=== PATIENT | male | born 1955 | race Caucasian/White ===

== ENCOUNTER → 2020-06-23 09:44 | Outpatient (BNVA) | payer OTHER, SELFPAY | PROVIDERS: PCP Internal Medicine; Visit Provider Urology | DX: N40.1 Benign prostatic hyperplasia with lower urinary tract symptoms (principal); R39.12 Poor urinary stream; R35.1 Nocturia; N52.01 Erectile dysfunction due to arterial insufficiency | CPT/HCPCS: 51798; 99212 ==

== ENCOUNTER → 2021-06-24 10:07 | Outpatient (BNVA) | payer OTHER, SELFPAY | PROVIDERS: PCP Internal Medicine; Visit Provider Urology | DX: N52.01 Erectile dysfunction due to arterial insufficiency (principal); R39.12 Poor urinary stream; R35.1 Nocturia | CPT/HCPCS: 51798; 99212 ==

== ENCOUNTER → 2022-07-01 10:22 | Outpatient (BNVA) | payer OTHER, MEDICARE, SELFPAY | PROVIDERS: PCP Internal Medicine; Visit Provider Urology | DX: N40.1 Benign prostatic hyperplasia with lower urinary tract symptoms (principal); R39.12 Poor urinary stream; R97.20 Elevated prostate specific antigen [PSA] | CPT/HCPCS: 51798; 99212 ==

== ENCOUNTER 2023-01-03 11:02 | Outpatient (AMB) | payer OTHER, MEDICARE, SELFPAY ==
--- NOTE | 2023-01-03 11:03 | A.OFFVIS_ITS ---
Intake Intake Visit Reasons: 6m/PSA(set) Intake Note: Patient is Present for Telephone Follow Up Urology Med: Finasteride, Sildenafil, Tamsulosin Antibiotic Allergy: None Blood Thinner: None Allergies naproxen [Naprosyn] Allergy (Unknown, Verified 01/03/23 11:03) swelling Medication List - Last Reconciled 01/03/23 by Alex Ga MD finasteride 5 mg PO DAILY 90 days sildenafil 100 mg PO ONCE PRN 30 days tamsulosin 0.4 mg PO BEDTIME 90 days HPI HPI Comments History of Present Illness Details Narciso PRO is a very pleasant male. He is a patient of Dr Fry. He is seen for the following urologic conditions. - lower urinary tract symptoms - erectile dysfunction Telemedicine Evaluation 15 min Consultation Doximity Sp Video attempted Repeat PSA normalized Prior ALYSON 2+ normal Continue with tamsulosin, finasteride and sildenafil as needed Lower Urinary Tract Symptoms: Recently - finasteride and tamsulosin Current visit is for further evaluation of, lower urinary tract symptoms, predominate obstructive symptoms. Current treatment includes medication, finasteride. Prostate Symptom Score 12/30 Mild (0-8), Bother 3. Symptoms include 12/30 , incomplete emptying, urgency, nocturia (>2), and are progressing 06/30 , incomplete emptying, and are improving. Prior Prostate Score mild. PSA 10/30 4.7 F 20%, 05/31 2.3, 05/01 PSA 1.3, 01/01 PSA 1.8, 04/05 1.7, 05/05 5.4, 01/05 1.8 Prostate volume 30-50gm. Testing at next visit will include Improved urination. Continuing current medications Erectile dysfunction Good response to high-dose sildenafil Prescription provided May take up to 200 mg as needed REPLACED BY [facility] Medical History Costochondritis Erectile dysfunction due to arterial insufficiency Elevated PSA Weak urinary stream Nocturia Hesitancy of micturition Benign prostatic hyperplasia with lower urinary tract symptoms Surgical History History of surgery Assessment & Plan Assessment & Plan (1) Elevated PSA: Code(s): R97.20 - Elevated prostate specific antigen [PSA] (2) Nocturia: Code(s): R35.1 - Nocturia (3) Erectile dysfunction due to arterial insufficiency: Code(s): N52.01 - Erectile dysfunction due to arterial insufficiency Plan Six month follow-up PSA Orders: Orders Prostate Specific Antigen 6 Months R97.20 - Elevated prostate specific antigen [PSA] Medications: Refilled tamsulosin 0.4 mg PO BEDTIME 90 days 90 caps 1RF R35.1 - Nocturia finasteride 5 mg PO DAILY 90 days 90 tabs 2RF Patient Instructions: Imaging studies, laboratory and physical exam results were discussed and re viewed in detail. No major barriers to patient understanding were identified. An opportunity to ask questions regarding the treatment plan was provided. All questions were answered. The patient expressed understanding and agreement with the above treatment plan. The patient is aware they should contact our office by phone for worsening of their current condition or the appearance of new urologic symptoms. Compliance is encouraged with any medications and followup testing that is ordered. It is a privilege to participate in the urologic care of your patient. If you have any questions or concerns regarding treatment for the above conditions, or other urologic issues, please do not hesitate to contact me. The office telephone contact is [phone]. This note is constructed using voice recognition software. While every effort has been made to ensure accuracy consumer insights specialist errors may have been included. Yours sincerely, Dr Alex Ga MD, [facility] - Urology Providers of Expert, Compassionate Care for the Genitourinary System Telehealth Telehealth Location of provider rendering services: practice address Location of patient: address on file Patient Identification confirmed using: Name, : Yes Telehealth method: video Patient verbally consented to treatment: Yes Patient verbally consented to billing insurance company: Yes Patient informed of any privacy concerns related to visit: Yes Coding Level of Care Code Tele Est Pt Level 3 (25146) Diagnoses Elevated PSA R97.20 Nocturia R35.1 Erectile dysfunction due to arterial insufficiency N52.01
== END 2023-01-03 12:04 | disposition home or self-care (01) ==
LOC: HO.HUSH 11:02
PROVIDERS: PCP Internal Medicine; Visit Provider Urology
DX: R97.20 Elevated prostate specific antigen [PSA] (principal); R35.1 Nocturia; N52.01 Erectile dysfunction due to arterial insufficiency
CPT/HCPCS: 99213

== ENCOUNTER → 2023-01-03 11:02 | Outpatient (BNVA) | payer OTHER, MEDICARE, SELFPAY | PROVIDERS: PCP Internal Medicine; Visit Provider Urology ==

== ENCOUNTER 2023-07-05 10:26 | Outpatient (AMB) | payer OTHER, MEDICARE, SELFPAY ==
--- NOTE | 2023-07-05 10:30 | A.OFFVIS_ITS ---
Intake Visit Reasons: 6m/PSA(SET) Intake Note: Patient is Present for PSA Follow Up Urology Med: Finasteride, Sildenafil, Tamsulosin Antibiotic Allergy: None Blood Thinner: None Developing Machine Tender Required: No Accompanied by: Self / Same As Patient Allergies naproxen [Naprosyn] Allergy (Unknown, Verified 07/05/23 10:37) swelling Medication List - Last Reconciled 07/05/23 by Alex Ga MD finasteride 5 mg PO DAILY 90 days sildenafil 100 mg PO ONCE PRN 30 days tamsulosin 0.4 mg PO BEDTIME 90 days HPI Comments Details: Narciso PRO is a very pleasant male. He is a patient of Dr Fry. He is seen for the following urologic conditions. - lower urinary tract symptoms - erectile dysfunction PSA remains low Prior ALYSON 2+ normal Continue with tamsulosin, finasteride and sildenafil as needed Cut finasteride back to Monday, Monday, Monday Lower Urinary Tract Symptoms: Recently - finasteride and tamsulosin Current visit is for further evaluation of, lower urinary tract symptoms, predominate obstructive symptoms. Current treatment includes medication, finasteride. Prostate Symptom Score 12/30 Mild (0-8), Bother 3. Symptoms include 12/30 , incomplete emptying, urgency, nocturia (>2), and are progressing 06/30 , incomplete emptying, and are improving. Prior Prostate Score mild. PSA 10/30 4.7 F 20%, 05/31 2.3, 05/01 PSA 1.3, 01/01 PSA 1.8, 04/05 1.7, 05/05 5.4, 01/05 1.8, 07/06 1.8 Prostate volume 30-50gm. Testing at next visit will include Improved urination. Continuing current medications Erectile dysfunction Good response to high-dose sildenafil Prescription provided May take up to 200 mg as needed PFSH Medical History Costochondritis Erectile dysfunction due to arterial insufficiency Elevated PSA Weak urinary stream Nocturia Hesitancy of micturition Benign prostatic hyperplasia with lower urinary tract symptoms Surgical History History of surgery Review of Systems Const Denies chills and Denies fever(s) Card Reports no additional complaints and Denies syncope Resp Denies cough GI Denies abdominal pain and Denies heartburn Reports as per HPI and Denies change in libido Neuro Denies syncope Psych Denies change in libido Endo Denies change in libido Physical Exam Const General: cooperative, healthy appearing, comfortable and no acute distress Orientation/consciousness: patient oriented x3 HEENT Face and sinus: Yes normal facial exam Mouth: moist mucous membranes Neck Neck: Yes normal visual inspection, Yes full ROM and Yes trachea midline Chest Chest palpation & inspection: normal inspection of the chest Resp Effort & Inspection: normal respiratory effort, able to speak in complete sentences and no respiratory distress GI Inspection: Yes normal to inspection Back/Spine/Pelvis Cervical Spine: normal cervical lordosis Thoracic/Lumbar Spine: thoracic and lumbar spine normal to inspection Skin General skin exam: no rashes or lesions noted Neuro General: patient oriented x3, gait normal, tone normal and moves all extremities Extrem General: Yes normal to inspection and Yes capillary refill normal Assessment & Plan Assessment & Plan (1) Elevated PSA: Code(s): R97.20 - Elevated prostate specific antigen [PSA] Category: Medical (2) Erectile dysfunction due to arterial insufficiency: Code(s): N52.01 - Erectile dysfunction due to arterial insufficiency Category: Medical (3) Benign prostatic hyperplasia with lower urinary tract symptoms: Code(s): N40.1 - Benign prostatic hyperplasia with lower urinary tract symptoms Category: Medical Plan Six-month follow-up PSA Orders: Orders Prostate Specific Antigen 6 Months R97.20 - Elevated prostate specific antigen [PSA] Patient Instructions: Imaging studies, laboratory and physical exam results were discussed and reviewed in detail. No major barriers to patient understanding were identified. An opportunity to ask questions regarding the treatment plan was provided. All questions were answered. The patient expressed understanding and agreement with the above treatment plan. The patient is aware they should contact our office by phone for worsening of their current condition or the appearance of new urologic symptoms. Compliance is encouraged with any medications and followup testing that is ordered. It is a privilege to participate in the urologic care of your patient. If you have any questions or concerns regarding treatment for the above conditions, or other urologic issues, please do not hesitate to contact me. The office telephone contact is [phone]. This note is constructed using voice recognition software. While every effort has been made to ensure accuracy compress trucker errors may have been included. Yours sincerely, Dr Alex Ga MD, [facility] - Urology Providers of Expert, Compassionate Care for the Genitourinary System Coding Level of Care Code Est Pt Level 3 (27495) Diagnoses Elevated PSA R97.20 Erectile dysfunction due to arterial insufficiency N52.01 Benign prostatic hyperplasia with lower urinary tract symptoms N40.1
== END 2023-07-05 11:24 | disposition home or self-care (01) ==
PROVIDERS: PCP Internal Medicine; Visit Provider Urology
DX: R97.20 Elevated prostate specific antigen [PSA] (principal); N52.01 Erectile dysfunction due to arterial insufficiency; N40.1 Benign prostatic hyperplasia with lower urinary tract symptoms
CPT/HCPCS: 99213

== ENCOUNTER → 2023-07-05 10:26 | Outpatient (BNVA) | payer OTHER, MEDICARE, SELFPAY | PROVIDERS: PCP Internal Medicine; Visit Provider Urology | DX: N40.1 Benign prostatic hyperplasia with lower urinary tract symptoms (principal); N13.8 Other obstructive and reflux uropathy; N52.01 Erectile dysfunction due to arterial insufficiency; R97.20 Elevated prostate specific antigen [PSA] | CPT/HCPCS: 99212 ==

== ENCOUNTER 2024-01-05 08:34 | Outpatient (AMB) | payer OTHER, MEDICARE, SELFPAY ==
--- NOTE | 2024-01-05 08:35 | A.OFFVIS_ITS ---
Intake Visit Reasons: 6M PSA(Set) Intake Note: Patient is present for PSA Follow Up Urology Med: Tamsulosin, Sildenafil, Finasteride Antibiotic Allergy: None Blood Thinner: None LAB: 12/22/2023 - PSA: 1.69 Last PVR: 0ml Licensed Staff Mft Required: No Accompanied by: Self / Same As Patient Allergies naproxen [Naprosyn] Allergy (Unknown, Verified 01/05/24 08:35) swelling Medication List - Last Reconciled 01/05/24 by Alex Ga MD finasteride 5 mg PO DAILY 90 days sildenafil 100 mg PO ONCE PRN 30 days tamsulosin 0.4 mg PO BEDTIME 90 days HPI Comments Details: Narciso PRO is a very pleasant male. He is a patient of Dr Fry. He is seen for the following urologic conditions. - lower urinary tract symptoms - erectile dysfunction Telemedicine Evaluation 15 min Consultation Cognitive Security Sp Video PSA remains low Follow in 6m Add on daily tadalafil Prior ALYSON 2+ normal Continue with tamsulosin, finasteride and sildenafil as needed Finasteride back to Monday, Monday, Monday Lower Urinary Tract Symptoms: Recently - finasteride and tamsulosin Current visit is for further evaluation of, lower urinary tract symptoms, predominate obstructive symptoms. Current treatment includes medication, finasteride. Prostate Symptom Score 12/30 Mild (0-8), Bother 3. Symptoms include 12/30 , incomplete emptying, urgency, nocturia (>2), and are progressing 06/30 , incomplete emptying, and are improving. Prior Prostate Score mild. PSA 10/30 4.7 F 20%, 05/31 2.3, 05/01 PSA 1.3, 01/01 PSA 1.8, 04/05 1.7, 05/05 5.4, 01/05 1.8, 07/06 1.8, 01/06 1.7 Prostate volume 30-50gm. Testing at next visit will include Improved urination. Continuing current medications Erectile dysfunction Good response to high-dose sildenafil Prescription provided May take up to 200 mg as needed PFSH Medical History Costochondritis Erectile dysfunction due to arterial insufficiency Elevated PSA Weak urinary stream Nocturia Hesitancy of micturition Benign prostatic hyperplasia with lower urinary tract symptoms Surgical History History of surgery Review of Systems Const All systems reviewed & are unremarkable except as noted in HPI and below Reports no additional complaints Resp Reports no additional complaints GI Reports no additional complaints Reports as per HPI Musc Reports no additional complaints Physical Exam Telemedicine evaluation Appropriate responses Regular breathing rate and rhythm HEENT Head: Yes normal to inspection Ears: hearing grossly normal bilaterally Eyes General: appearance normal, both eyes and all related structures Neck Neck: Yes normal visual inspection Chest Chest palpation & inspection: normal inspection of the chest Resp Effort & Inspection: normal respiratory effort and able to speak in complete sentences Telehealth Telehealth Telehealth Platform: Cognitive Security Location of provider rendering services: practice address Location of patient: address on file Patient Identification confirmed using: Name, : Yes Telehealth method: video Patient verbally consented to treatment: Yes Patient verbally consented to billing insurance company: Yes Patient informed of any privacy concerns related to visit: Yes Minutes spent on Phone/Video with Pt.: 15 Assessment & Plan Assessment & Plan (1) Benign prostatic hyperplasia with lower urinary tract symptoms: Code(s): N40.1 - Benign prostatic hyperplasia with lower urinary tract symptoms Category: Medical (2) Erectile dysfunction due to arterial insufficiency: Code(s): N52.01 - Erectile dysfunction due to arterial insufficiency Category: Medical Plan Refill meds Add daily tadalafil Six-month follow-up Orders: Orders Prostate Specific Antigen 364 Days N40.1 - Benign prostatic hyperplasia with lower urinary tract symptoms Medications: New tadalafil 5 mg PO DAILY 90 days 90 tabs 0RF BPH N40.1 - Benign prostatic hyperplasia with lower urinary tract symptoms Refilled tamsulosin 0.4 mg PO BEDTIME 90 days 90 caps 3RF R35.1 - Nocturia finasteride 5 mg PO DAILY 90 days 90 tabs 2RF sildenafil administer 60 minutes before intended activity 100 mg PO ONCE 30 days PRN 30 tabs 1RF sexual activity N52.01 - Erectile dysfunction due to arterial insufficiency Patient Instructions: Imaging studies, laboratory and physical exam results were discussed and reviewed in detail. No major barriers to patient understanding were identified. An opportunity to ask questions regarding the treatment plan was provided. All questions were answered. The patient expressed understanding and agreement with the above treatment plan. The patient is aware they should contact our office by phone for worsening of their current condition or the appearance of new urologic symptoms. Compliance is encouraged with any medications and followup testing that is ordered. It is a privilege to participate in the urologic care of your patient. If you have any questions or concerns regarding treatment for the above conditions, or other urologic issues, please do not hesitate to contact me. The office telephone contact is [phone]. This note is constructed using voice recognition software. While every effort has been made to ensure accuracy language pathologist errors may have been included. Yours sincerely, Dr Alex Ga MD, [facility] - Urology Providers of Expert, Compassionate Care for the Genitourinary System Coding Level of Care Code Tele Est Pt Level 4 (00071) Diagnoses Benign prostatic hyperplasia with lower urinary tract symptoms N40.1 Erectile dysfunction due to arterial insufficiency N52.01
== END 2024-01-05 10:47 | disposition home or self-care (01) ==
PROVIDERS: PCP Internal Medicine; Visit Provider Urology
DX: N40.1 Benign prostatic hyperplasia with lower urinary tract symptoms (principal); N52.01 Erectile dysfunction due to arterial insufficiency
CPT/HCPCS: 99214

== ENCOUNTER 2024-08-02 13:43 | Outpatient (AMB) | payer OTHER, MEDICARE, SELFPAY ==
--- NOTE | 2024-08-02 13:45 | A.OFFVIS_ITS ---
Intake Visit Reasons: follow up/PSA Intake Note: Patient is present for PSA F/U Urology Medication:TADALAFIL,TAMSULOSIN,FINASTERIDE Antibiotic Allergy:NONE Blood Thinner:NONE TODAY'S PVR:0ML'S Radio Producer Required: No Allergies naproxen (Naprosyn) Allergy (Unknown, Verified 08/02/24 13:46) swelling HPI Comments Details: Narciso PRO is a very pleasant male. He is a patient of Dr Fry. He is seen for the following urologic conditions. - lower urinary tract symptoms - erectile dysfunction Six-month follow-up Has been on daily tadalafil to help with bladder stability Prior ALYSON 2+ normal Continue with tamsulosin, finasteride and sildenafil as needed Finasteride back to Monday, Monday, Monday Lower Urinary Tract Symptoms: Recently - finasteride and tamsulosin Current visit is for further evaluation of, lower urinary tract symptoms, predominate obstructive symptoms. Current treatment includes medication, finasteride. Prostate Symptom Score 12/30 Mild (0-8), Bother 3. Symptoms include 12/30 , incomplete emptying, urgency, nocturia (>2), and are progressing 06/30 , incomplete emptying, and are improving. Prior Prostate Score mild. PSA 10/30 4.7 F 20%, 05/31 2.3, 05/01 PSA 1.3, 01/01 PSA 1.8, 04/05 1.7, 05/05 5.4, 01/05 1.8, 07/06 1.8, 01/06 1.7, 08/07 2.3 Prostate volume 30-50gm. Testing at next visit will include Improved urination. Continuing current medications Erectile dysfunction Good response to high-dose sildenafil Prescription provided May take up to 200 mg as needed [facility] Medical History Costochondritis Erectile dysfunction due to arterial insufficiency Elevated PSA Weak urinary stream Nocturia Hesitancy of micturition Benign prostatic hyperplasia with lower urinary tract symptoms Surgical History History of surgery Review of Systems Const Denies chills and Denies fever(s) Card Reports no additional complaints and Denies syncope Resp Denies cough GI Denies abdominal pain and Denies heartburn Reports as per HPI and Denies change in libido Neuro Denies syncope Psych Denies change in libido Endo Denies change in libido Physical Exam Const General: cooperative, healthy appearing, comfortable and no acute distress Orientation/consciousness: patient oriented x3 HEENT Face and sinus: Yes normal facial exam Mouth: moist mucous membranes Neck Neck: Yes normal visual inspection, Yes full ROM and Yes trachea midline Chest Chest palpation & inspection: normal inspection of the chest Resp Effort & Inspection: normal respiratory effort, able to speak in complete sentences and no respiratory distress GI Inspection: Yes normal to inspection Back/Spine/Pelvis Cervical Spine: normal cervical lordosis Thoracic/Lumbar Spine: thoracic and lumbar spine normal to inspection Skin General skin exam: no rashes or lesions noted Neuro General: patient oriented x3, gait normal, tone normal and moves all extremities Extrem General: Yes normal to inspection and Yes capillary refill normal Office Procedures Post Void Residual Post Residual Void Post Void Residual (PVR): 0 [id number]-[id number] Void Residual by ultrasound Assessment & Plan Assessment & Plan (1) Weak urinary stream: Code(s): R39.12 - Poor urinary stream Category: Medical (2) Benign prostatic hyperplasia with lower urinary tract symptoms: Code(s): N40.1 - Benign prostatic hyperplasia with lower urinary tract symptoms Category: Medical Plan Six-month follow-up Orders: Orders AMB Urinalysis Automated Today Z13.9 - Encounter for screening, unspecified Medications: Refilled finasteride 5 mg PO DAILY 90 tabs 3RF 90 days Patient Instructions: This note is constructed using voice recognition software. While every effort has been made to ensure accuracy accounts receivable associate errors may have been included. Imaging studies, laboratory and physical exam results were discussed and reviewed in detail. No major barriers to patient understanding were identified. An opportunity to ask questions regarding the treatment plan was provided. All questions were answered. The patient expressed understanding and agreement with the above treatment plan. The patient is aware they should contact our office by phone for worsening of their current condition or the appearance of new urologic symptoms. Compliance is encouraged with any medications and followup testing that is ordered. It is a privilege to participate in the urologic care of your patient. If you have any questions or concerns regarding treatment for the above conditions, or other urologic issues, please do not hesitate to contact me. The office telephone contact is [phone]. Sincerely, Dr Alex Ga MD, [facility] - Urology Compassionate Specialist Care for the Genitourinary System Coding Level of Care Code Est Pt Level 3 (96311) Complex EM visit Add On G2211 Diagnoses Weak urinary stream R39.12 Benign prostatic hyperplasia with lower urinary tract symptoms N40.1 CPT Codes Post Residual Void - PVR CPT Code: 47363-Ikxh Void Residual by ultrasound ([id number])
--- OUTSIDE RECORDS SUMMARY | 2024-08-02 13:46 | XMS_ITS | Clinical Summary ---
Author Organization [facility] Address [address] [place] [address] Phone Care Team Providers Care Mud Analysis Well Logging Captain Name Role Phone Darryl Fry MD Primary Care Provider Allergies Active Allergy Reactions Criticality Noted Date Comments Naproxen 12/27/2004 Other Reaction(s): Numbness, tingling or swelling of the lips, tongue or mouth Medications finasteride (PROSCAR) 5 mg tablet 3 Active sildenafiL (VIAGRA) 100 mg tablet 1 tablet as needed 60 minutes before intercourse. Max is 100mg in 24 hours. 6 Active tamsulosin (FLOMAX) 0.4 mg 24 hr capsule Take 0.4 mg by mouth daily. Take 30 mins after same meal every day. Active acetaminophen (TYLENOL) 500 mg tablet prn Active ascorbic acid (VITAMIN C) 1,000 mg tablet 1 TABLET DAILY AT DINNER Active diclofenac (VOLTAREN) 1 % topical gel Apply 2 gram four times daily to affected joint 100 g 3 5 Active fluticasone propionate (FLONASE) 50 mcg/actuation nasal spray Administer 2 sprays into each nostril 2 (two) times a day. Shake gently. Before first use, prime pump. After use, clean tip and replace cap. 16 g 3 5 Active mupirocin (BACTROBAN) 2 % ointment Apply topically 2 (two) times a day. 22 g 5 Active ergocalciferol (VITAMIN D-2) 1,250 mcg (50,000 unit) capsule Take 1 capsule (50,000 Units total) by mouth 1 (one) time per week. 12 capsule 5 Active Active Problems Problem Noted Date Diagnosed Date Nasal inflammation 04/18/2024 Erectile dysfunction 04/18/2024 Benign prostatic hyperplasia with lower urinary tract symptoms 03/28/2022 Elevated LDL cholesterol level 03/28/2022 Other emphysema (CMS/HCC V24, CMS/HCC V28) 03/28 Underweight 03/28/2022 Direct inguinal hernia 01/09/2019 Elevated PSA 05/02/2016 Impaired fasting blood sugar 11/02/2015 Periapical abscess without sinus 04/21/2005 Mitral valve disorder 04/21/2005 Overview (02/05/2024): ECHO in 2008 and 2013 Resolved Problems Problem Noted Date Diagnosed Date Resolved Date Chest pain 04/21/2005 04/18/2024 Encounters Date Type Department Care Team Description 07/10/2024 Telephone Adult Medicine [address] [phone] Lisandra Pickard PA 07/04/2024 2:30 PM EDT Office Visit Adult Medicine [address] [phone] Lisandra Pickard PA Routine general medical examination at a health care facility (Primary Dx); Hypercholesterolemia; Vitamin D deficiency; IFG (impaired fasting glucose); Elevated PSA; Screening for deficiency anemia from Last 3 Months Immunizations Name Administration Dates Next Due Influenza Quadravalent, MDCK , 0.5ml, preservative free (Flucelvax) 6mo and older 03/28/2022,01/09/2019,12/14/2017 Influenza Quadravalent, MDCK , 0.5ml, with preservative (Flucelvax) 6mo and older 11/02/2016 Influenza trivalent, 0.5mL ( Fluad) 65yo and older 04/05/2024 Influenza trivalent, 0.5mL ( Fluzone High-dose) 65yo and older 01/20/2021,01/14/2020,11/03/2014 Influenza trivalent, with pr eservative (Fluzone; Afluria) 6mo and older 11/02/2015 [facility] [employer] SARS-CoV-2 COVID -19, vector-nr, rS-Ad26, preservative free 05/27/2020 Pneumococcal conjugate 20 va lent (Prevnar 20, PCV 20) 2mo and older 03/28/2022 Pneumococcal polysaccharide 23 valent (Pneumovax 23) 2yo and older 03/16/2020 Td Tetanus diptheria (Tdvax) 7yo and older 03/16,06/19/2003 Tdap Tetanus diptheria acell ular pertussis (Boostrix; Adacel) 7yo and older 12/21/2009 Zoster Live 11/03/2014 Surgical History Surgery Date Site/Laterality Comments OTHER SURGICAL HISTORY PROCEDURE: HISTORY OTHER; COMMENT: septo[plasty[ OTHER SURGICAL HISTORY PROCEDURE: HISTORY OTHER; COMMENT: partial rt middle finger traumatic amputation COLONOSCOPY 06/14/10 PROCEDURE: HISTORICAL COLONOSCOPY; COMMENT: adenomas and tics; repeat in 5 yrs COLONOSCOPY 06/19/15 PROCEDURE: MS COLONOSCOPY STOMA W/RMVL DALILA POLYP/OTH LES SNARE; COMMENT: adenomas and tics; repeat in 3 yrs COLONOSCOPY 07/24/2018 PROCEDURE: HISTORICAL COLONOSCOPY; COMMENT: two tiny polyps Medical History Medical History Date Comments Chest pain, unspecified 04/21/2005 DX:Chest pain, unspecified Mitral valve disorders(424.0) 04/21/2005 DX :Mitral valve disorders(424.0) Periapical abscess without sinus 04/21/2005 DX:Periapical abscess without sinus Personal history of colonic polyps 08/21/2005 DX:Personal history of colonic polyps Tobacco use disorder 08/22/2005 DX:Tobacco use disorder Mitral valve disorders(424.0) 04/21/2005 DX :Mitral valve disorders(424.0) Chest pain 04/21/2005 Family History Medical History Relation Name Comments Other: myasthenia gravis Brother 1 hyp ercholesterolemia Stroke Brother 2 Cataracts Father heart murmur, a sbestosis, [place] Heart attack Mother No Known Problems Sister Relation Name Status Comments Brother 1 Brother 2 Alive Father (Age 89) Mother (Age 77) Sister Alive Social History Tobacco Use Types Packs/Day Years Used Date Smoking Tobacco: Former Cigarettes Q uit: 08/14/2019 Smokeless Tobacco: Never Tobacco Cessation:Counseling Given: Not Answered Alcohol Use Standard Drinks/Week Comments Yes 0 (1 standard drink = 0.6 oz pur e alcohol) 2 beers daily Housing Instability Answer Date Recorde d Are you worried that in the next 2 months you may not have stable housing? No 04/05/2024 Food Access & Nutrition Answer Date Rec orded Do you have access to a vari ety of food including fruits and vegetables? Yes 04/05/2024 Health Literacy Answer Date Recorded How often do you need to hav e someone help you when you read instructions, pamphlets, or other written material from your doctor or pharmacy? Never 04/05/2024 Caregiver: How often do you need to have someone help you when you read instructions, pamphlets, or other written material from your doctor or pharmacy? Not on file 04/05/2024 Financial Risk Answer Date Recorded How hard is it for you to pa y for the very basics like food, housing, medical care, and air conditioning / heating? Not very hard 04/05/2024 Transportation Answer Date Recorded Has the lack of transportati on kept you from meetings, work, or from getting things needed for daily living? No Has the lack of transportati on kept you from medical appointments or from getting medications? No 04/05/2024 Social Isolation Answer Date Recorded How often do you feel lonely or isolated from th ose around you? Never 04/05/2024 Food Risk Answer Date Recorded Within the past 12 months we worried whether our food would run out before we got money to buy more. Never true 04/05/2024 Within the past 12 months th e food we bought just didn't last and we didn't have money to get more. Never true 04/05/2024 Dependent Care Answer Date Recorded Do you need help finding or paying for care for your loved ones. For example, professor of early childhood education or elderly care for an older adult? No 04/05/2024 Education Answer Date Recorded Do you think completing more education or training, like finishing a GED, going to college, or learning a trade, would be helpful for you? No 04/05/2024 Employment and Income Answer Date Recor ded During the last four weeks, have you been actively looking for work? No 04/05/2024 Living Situation Answer Date Recorded What is your living situation? 0 04/05/2024 Sex and Gender Information Value Date Recorded Sex Assigned at Not on file Legal Sex Male 7:16 AM EST Gender Identity Not on file Sexual Orientation Not on file Occupation Industry Job Start Date Job End Date retired Not on file Not on file Not on file Obstetrics History Last Filed Vital Signs Vital Sign Reading Time Taken Comments Blood Pressure 115/60 07/04/2024 2:23 PM EDT Pulse 86 07/04/2024 2:23 PM EDT Temperature 36.2 C (97.1 F) 07/04/2024 2:23 PM EDT Respiratory Rate 15 07/04/2024 2:23 PM EDT Oxygen Saturation - - Inhaled Oxygen Concentration - - Weight 62 kg (136 lb 9.6 oz) 07/04/2024 2:23 PM EDT Height 182.9 cm (6') 07/04/2024 2:23 PM EDT Body Mass Index 18.53 07/04/2024 2:23 PM EDT Plan of Treatment Upcoming Encounters Date Type Department Care Team (Late st Contact Info) Description 07/08/2025 11:30 AM EDT Office Visit Adult Medicine [facility] [address] [place] [address] Darryl Fry MD [address] [place] [address] Health Maintenance Due Date Last Done Comments RSV Immunization Adult Patients (1 - Risk 60-74 years 1-dose series) 2014 Zoster Vaccines (2 of 3) 12/29/2014 11/03/2014 COVID-19 Vaccine (3 - season) 2023 05/27/2020, 04/28/2020 Lung Cancer Screening (Low Dose CT) 12/10/2024 12/11/2023, 12/12/2022, 12/06/2021, Additional history exists Depression Screening 04/05/2025 04/05/2024 Falls Risk Assessment 04/05/2025 04/05/2024 Social Influencers of Health Screening 04/05/2025 04/05/2024 Cholesterol Screening (Lipid Panel) 07/05/2029 07/05/2024, 06/29/2023, 06/29/2023 DTaP,Tdap,and Td Vaccines (5 - Td or Tdap) 03/16/2030 03/16/2020, 12/21/2009, 02/01/2008, Additional history exists Colorectal Cancer Screening: Colonoscopy 10/22/2033 10/23/2023 Hepatitis C Screening Completed 01/26/2006 Abdominal Aortic Aneurysm (AAA) Screen Completed 04/09/2020 Pneumococcal Vaccine: 50+ Years Completed 03/28/2022, 03/16/2020 Influenza Vaccine Completed 04/05/2024, , 01/20/2021, Additional history exists HIB Vaccines Aged Out No longer eligi ble based on patient's age to complete this topic HPV Vaccines Aged Out No longer eligi ble based on patient's age to complete this topic Hepatitis A Vaccines Aged Out No long er eligible based on patient's age to complete this topic Hepatitis B Vaccines Aged Out No long er eligible based on patient's age to complete this topic IPV Vaccines Aged Out No longer eligi ble based on patient's age to complete this topic MMR Vaccines Aged Out No longer eligi ble based on patient's age to complete this topic Meningococcal ACWY Vaccine Aged Out N o longer eligible based on patient's age to complete this topic Meningococcal B Vaccine Aged Out No l onger eligible based on patient's age to complete this topic RSV Immunization Patients Under 20 months Aged Out No longer eligible based on patient's age to complete this topic Varicella Vaccines Aged Out No longer eligible based on patient's age to complete this topic Procedures Procedure Name Priority Date/Time Associated Diagnosis Comments PROSTATE SPECIFIC ANTIGEN DIAGNOSTIC Routine 07/19/2024 10:59 AM EDT Benign localized prostatic hyperplasia with lower urinary tract symptoms (LUTS) COMPREHENSIVE METABOLIC PANEL Routine 07/05/2024 9:47 AM EDT Routine general medical examination at a health care facility COMPLETE BLOOD COUNT Routine 07/05/2024 9:47 AM EDT Screening for deficiency anemia LIPID PANEL WITH REFLEX TO DIRECT LDL Routine 07/05/2024 9:47 AM EDT Hypercholesterolemia VITAMIN D 25 HYDROXY Routine 07/05/2024 9:47 AM EDT Vitamin D deficiency HEMOGLOBIN A1C Routine 07/05/2024 9:47 AM EDT IFG (impaired fasting glucose) PROSTATE SPECIFIC ANTIGEN SCREEN Routine 07/05/2024 9:47 AM EDT Elevated PSA CT LUNG SCREENING LOW DOSE Routine 12/11/2023 11:24 AM EDT Nicotine dependence, cigarettes, uncomplicated HM COLONOSCOPY Routine 10/23/2023 ABDOMINAL AORTIC ANEURYSM SCRREN Routine 04/09/2020 HEPATITIS C SCREENING Routine 01/26/2006 from Last 3 Months or Most Recently Relevant to Health Maintenance Results * Prostate specific antigen diagnostic (07/19/2024 10:59 AM EDT) PSA 2.33 0.00 - 4.00 ng/mL LAB CHEMISTRY METHOD 07/19/2024 2:43 PM EDT [facility] Blood Venous blood specimen / Unknown Venipuncture / Unknown 07/19/2024 10:59 AM EDT 07/19/2024 10:59 AM EDT Narrative [facility] - 07/19/2024 2:43 PM EDT The Siemens Advia Centaur Chemiluminescent Immunoassay is used. Results obtained with different assay methods or kits cannot be used interchangeably. Results cannot be interpreted as absolute evidence of the presence or absence of malignant disease. us Alex Ga MD LAB BLOOD ORDERABLES Final Re sult [facility] [address] [place] [address], [place] [phone] * Prostate specific antigen screen (07/05/2024 9:47 AM EDT) [facility] PSA 2.30 0.00 - 4.00 ng/mL LAB CHEMISTRY METHOD 07/05/2024 5:21 PM EDT [facility] Blood Venous blood specimen / Unknown Venipuncture / Unknown 07/05/2024 9:47 AM EDT 07/05/2024 9:47 AM EDT Narrative [facility] - 07/05/2024 5:21 PM EDT The Siemens Advia Accuvantaur Chemiluminescent Immunoassay is used. Results obtained with different assay methods or kits cannot be used interchangeably. Results cannot be interpreted as absolute evidence of the presence or absence of malignant disease. us Lisandra STARKEY LAB BLOOD ORDERABLES Final Resul t [facility] [address] [place] [address], [place] [phone] * Lipid panel with reflex to direct LDL (07/05/2024 9:47 AM EDT) [facility] Cholesterol 176 0 - 200 mg/dL LAB CHEMISTRY METHOD 07/05/2024 3:31 PM EDT [facility] Triglycerides 105 0 - 150 mg/dL LAB CHEMISTRY METHOD 07/05/2024 3:31 PM EDT [facility] HDL 61 >=40 mg/dL LAB CHEMISTRY METHOD 07/05/2024 3:31 PM EDT [facility] LDL Calculated 94 0 - 100 mg/dL LAB CHEMISTRY METHOD 07/05/2024 3:31 PM EDT [facility] VLDL Cholesterol Javier 21 mg/dL LAB CHEMISTRY METHOD 07/05/2024 3:31 PM EDT [facility] Non HDL Chol. (LDL+VLDL) 115 <145 mg/dL LAB CHEMISTRY METHOD 07/05/2024 3:31 PM EDT [facility] Chol/HDL Ratio 2.9 0.0 - 4.4 LAB CHEMISTRY METHOD 07/05/2024 3:31 PM EDT [facility] Blood Venous blood specimen / Unknown Venipuncture / Unknown 07/05/2024 9:47 AM EDT 07/05/2024 9:47 AM EDT us Lisandra Pickard PA LAB BLOOD ORDERABLES Final Resul t Performing Organization Address [facility]/ZIP Co de Phone Number [facility] [address] [place] [address], [place] [phone] * (ABNORMAL) Vitamin D 25 hydroxy (07/05/2024 9:47 AM EDT) Vit D, 25-Hydroxy 12.6(L) 30.0 - 80.0 ng/mL LAB CHEMISTRY METHOD 07/05/2024 5:21 PM EDT [facility] Blood Venous blood specimen / Unknown Venipuncture / Unknown 07/05/2024 9:47 AM EDT 07/05/2024 9:47 AM EDT us Lisandra STARKEY LAB BLOOD ORDERABLES Final Resul t Performing Organization Address [facility]/ZIP Va de Phone Number [facility] [address] [place] [address], [place] [phone] * (ABNORMAL) Complete blood count (07/05/2024 9:47 AM EDT) WBC 8.6 4.8 - 10.8 K/mcL LAB HEMETOLOGY METHOD 07/05/2024 12:12 PM EDT [facility] RBC 4.40(L) 4.50 - 5.50 M/mcL LAB HEMETOLOGY METHOD 07/05/2024 12:12 PM EDT [facility] Hemoglobin 13.5 13.5 - 17.5 g/dL LAB HEMETOLOGY METHOD 07/05/2024 12:12 PM EDT [facility] Hematocrit 41.1(L) 42.0 - 54.0 % LAB HEMETOLOGY METHOD 07/05/2024 12:12 PM EDT [facility] MCV 93.4 79.0 - 98.0 FL LAB HEMETOLOGY METHOD 07/05/2024 12:12 PM EDT [facility] MCH 30.7 27.0 - 32.0 pcg LAB HEMETOLOGY METHOD 07/05/2024 12:12 PM EDT [facility] MCHC 32.8 32.0 - 37.0 g/dL LAB HEMETOLOGY METHOD 07/05/2024 12:12 PM EDT [facility] RDW 14.4 11.0 - 15.0 % LAB HEMETOLOGY METHOD 07/05/2024 12:12 PM EDT [facility] Platelets 250 130 - 400 K/mcL LAB HEMETOLOGY METHOD 07/05/2024 12:12 PM EDT [facility] MPV 10.4 7.0 - 11.0 FL LAB HEMETOLOGY METHOD 07/05/2024 12:12 PM EDT [facility] NRBC 0.0 <1.0 % LAB HEMETOLOGY METHOD 07/05/2024 12:12 PM EDT [facility] NRBC Absolute 0.00 <0.10 K/mcL LAB HEMETOLOGY METHOD 07/05/2024 12:12 PM EDT [facility] Blood Venous blood specimen / Unknown Venipuncture / Unknown 07/05/2024 9:47 AM EDT 07/05/2024 9:47 AM EDT us Lisandra Neeraj STARKEY LAB BLOOD ORDERABLES Final Resul t [facility] [address] [place] [address], [place] [phone] * Hemoglobin A1c (07/05/2024 9:47 AM EDT) [facility] Hemoglobin A1C 5.3 <6.5 % LAB CHEMISTRY METHOD 07/08/2024 12:47 PM EDT [facility] Mean Bld Glu Estim. 105 mg/dL LAB CHEMISTRY METHOD 07/08/2024 12:47 PM EDT [facility] Blood Venous blood specimen / Unknown Venipuncture / Unknown 07/05/2024 9:47 AM EDT 07/05/2024 9:47 AM EDT us Lisandra STARKEY LAB BLOOD ORDERABLES Final Resul t [facility] [address] [place] [address], * (ABNORMAL) Comprehensive metabolic panel (07/05/2024 9:47 AM EDT) [facility] Sodium 135 133 - 145 mmol/L LAB CHEMISTRY METHOD 07/05/2024 3:31 PM [facility] Potassium 4.4 3.5 - 5.5 mmol/L LAB CHEMISTRY METHOD 07/05/2024 3:31 PM [facility] Chloride 101 96 - 110 mmol/L LAB CHEMISTRY METHOD 07/05/2024 3:31 PM [facility] CO2 22 21 - 32 mmol/L LAB CHEMISTRY METHOD 07/05/2024 3:31 PM [facility] Anion Gap 12(H) 3 - 11 LAB CHEMISTRY METHOD 07/05/2024 3:31 PM [facility] Glucose 123(H) 70 - 100 mg/dL LAB CHEMISTRY METHOD 07/05/2024 3:31 PM [facility] BUN 12 5 - 25 mg/dL LAB CHEMISTRY METHOD 07/05/2024 3:31 PM [facility] Creatinine 0.87 0.70 - 1.30 mg/dL LAB CHEMISTRY METHOD 07/05/2024 3:31 PM [facility] eGFR 93 >=60 mL/min/1. 73m2 LAB CHEMISTRY METHOD 07/05/2024 3:31 PM [facility] Comment:Calculation based on the Chronic Kidney Disease Epidemiology Collaboration (CKD-EPI) equation refit without adjustment for race. BUN/Creatinine Ratio 13.8 LAB CHEMISTRY METHOD 07/05/2024 3:31 PM [facility] Calcium 9.5 8.5 - 10.5 mg/dL LAB CHEMISTRY METHOD 07/05/2024 3:31 PM [facility] AST (SGOT) 16 10 - 42 unit/L LAB CHEMISTRY METHOD 07/05/2024 3:31 PM [facility] ALT (SGPT) 19 10 - 60 unit/L LAB CHEMISTRY METHOD 07/05/2024 3:31 PM [facility] Alkaline Phosphatase 68 42 - 121 unit/L LAB CHEMISTRY METHOD 07/05/2024 3:31 PM [facility] Total Protein 7.5 6.0 - 8.0 g/dL LAB CHEMISTRY METHOD 07/05/2024 3:31 PM [facility] Albumin 3.8 3.2 - 5.0 g/dL LAB CHEMISTRY METHOD 07/05/2024 3:31 PM [facility] Total Bilirubin 0.7 0.0 - 1.4 mg/dL LAB CHEMISTRY METHOD 07/05/2024 3:31 PM [facility] Blood Venous blood specimen / Unknown Venipuncture / Unknown 07/05/2024 9:47 AM EDT 07/05/2024 9:47 AM EDT us Lisandra Neeraj STARKEY LAB BLOOD ORDERABLES Final Resul t [facility] [address] [place] [address], [place] [phone] * CT LUNG SCREENING LOW DOSE (12/11/2023 11:24 AM EDT) Anatomical Region Laterality Modality Computed Tomogra phy 12/10/2023 7:56 AM EDT Narrative 12/11/2023 11:24 AM EDT [facility] Diagnostic Imaging Department [address] [place] [address] Patient: NARCISO PRO./Age/Sex: 1955 - 68 - M Unit#: [id number] [facility] Mnemonic/Ordering Site: [facility] Ordering Physician: OSIRIS LIRIANO MD CT Lung Screening Low Dose - 12/10/23803 Report Status:Signed PROCEDURE: Chest CT INDICATION: Lung cancer screening, current smoker, 50 pack year smoking history TECHNIQUE: Chest CT without contrast. Multi planar reformats were created and interpreted. The examination was performed utilizing dose reduction techniques. Total DLP 202 COMPARISON: 12/07/2022 FINDINGS: LUNGS/PLEURA: Central airways are patent. Emphysema with chronic bronchitis. Biapical pleural-parenchymal scarring. Stable 5 mm fissural nodule in the right upper lobe along the minor fissure. Linear scarring in the right middle lobe and in the lower lobes at the lung bases bilaterally, stable compared to prior. No new or suspicious pulmonary nodules. No pleural effusion or pneumothorax. MEDIASTINUM: Thyroid gland is unremarkable. No mediastinal or hilar lymphadenopathy. Cardiac chambers are normal in size. No pericardial effusion. Mild coronary artery calcifications. Esophagus is normal. CHEST WALL: No axillary lymphadenopathy or superficial hematoma. UPPER ABDOMEN:The visualized portions of the upper abdomen are unremarkable. BONES: No acute fracture. Scattered degenerative changes seen throughout the bones. IMPRESSION: No new or suspicious pulmonary nodules. Lung RADS 2-benign. Recommend continued screening with low-dose chest CT in 12 months. Dictating Physician: SHANTEL ANTOINE MD Electronically Signed by: SHANTEL ANTOINE MD Dic Date/Time: 12/11/23 1047 Sign date/Time: 12/11/23 1124 Procedure Note Shantel Antoine MD - 12/16/2023 [facility] Diagnostic Imaging Department [address] [place], [place] [id number] Patient: NARCISO PRO /Age/Sex: 1955 - 68 - M Unit#: [id number] Location/Status: [facility] CLI Mnemonic/Ordering Site: [facility] Ordering Physician: OSIRIS LIRIANO MD CT Lung Screening Low Dose - 12/10/23 - 04 Report Status:Signed PROCEDURE: Chest CT INDICATION: Lung cancer screening, current smoker, 50 pack year smokinghistory TECHNIQUE: Chest CT without contrast. Multi planar reformats were createdand interpreted. The examination was performed utilizing dose reductiontechniques. Total DLP 202 COMPARISON: 12/07/2022 FINDINGS: LUNGS/PLEURA: Central airways are patent. Emphysema with chronicbronchitis. Biapical pleural-parenchymal scarring. Stable 5 mm fissural nodule in theright upper lobe along the minor fissure. Linear scarring in the right middlelobe and in the lower lobes at the lung bases bilaterally, stable compared toprior. No new or suspicious pulmonary nodules. No pleural effusion orpneumothorax. MEDIASTINUM: Thyroid gland is unremarkable. No mediastinal or hilar lymphadenopathy. Cardiac chambers are normal in size. No pericardialeffusion. Mild coronary artery calcifications. Esophagus is normal. CHEST WALL: No axillary lymphadenopathy or superficial hematoma. UPPER ABDOMEN:The visualized portions of the upper abdomen areunremarkable. BONES: No acute fracture. Scattered degenerative changes seen throughoutthe bones. IMPRESSION: No new or suspicious pulmonary nodules. Lung RADS 2-benign. Recommend continued screening with low-dose chest CT in 12 months. Dictating Physician: SHANTEL ANTOINE MD Electronically Signed by: SHANTEL ANTOINE MD Dic Date/Time: 12/11/23 1047 Sign date/Time: 12/11/23 1124 Osiris Liriano MD IMG CT PROCEDURES Final Result * Colonoscopy (10/23/2023) Colonoscopy No Interpretation , Abstracted Anatomical Region Laterality Modality Other Result [facility] [employer] Final Result * Abdominal Aortic Aneurysm Screen (04/09/2020) Abdominal Aortic Aneurysm (AAA) Screening Abstracted Anatomical Region Laterality Modality Other Result [facility] [employer] Final Result * Hepatitis C Screening (01/26/2006) Hepatitis C Screening Abstracted Result [facility] [employer] Final Result from Last 3 Months or Most Recently Relevant to Health Maintenance Insurance [facility] Care Teams Mud Analysis Well Logging Captain Relationship Specialty Start Date End Date Darryl Fry MD [address] [place] [address] PCP - General 03/01/22
== END 2024-08-02 14:22 | disposition home or self-care (01) ==
LOC: HO.HUSH 13:43
PROVIDERS: PCP Internal Medicine; Visit Provider Urology
DX: N40.1 Benign prostatic hyperplasia with lower urinary tract symptoms (principal); R39.12 Poor urinary stream
CPT/HCPCS: 99213

== ENCOUNTER → 2024-08-02 13:43 | Outpatient (BNVA) | payer OTHER, MEDICARE, SELFPAY | PROVIDERS: PCP Internal Medicine; Visit Provider Urology | DX: N40.1 Benign prostatic hyperplasia with lower urinary tract symptoms (principal); N13.8 Other obstructive and reflux uropathy; N52.01 Erectile dysfunction due to arterial insufficiency; R39.12 Poor urinary stream | CPT/HCPCS: 51798; 99212 ==

== ENCOUNTER 2025-02-04 09:02 | Outpatient (AMB) | payer OTHER, MEDICARE, SELFPAY ==
--- NOTE | 2025-02-04 09:02 | MHC.OFFVIS ---
Intake Visit Reasons: 6m f/u SET Intake Note: Patient is present for PSA F/U Urology Medication:TADALAFIL,TAMSULOSIN,FINASTERIDE,SILDENAFIL Antibiotic Allergy:NONE Blood Thinner:NONE Last PVR:[employer] Developer Required: No Accompanied by: Self / Same As Patient Allergies naproxen (Naprosyn) Allergy (Unknown, Verified 02/04/25 09:03) swelling HPI Comments Details: Narciso PRO is a very pleasant male. He is a patient of Dr Fry. He is seen for the following urologic conditions. - lower urinary tract symptoms - erectile dysfunction Telemedicine Evaluation 15 min Consultation [employer] Video Six-month follow-up Continue good response with current medications for prostate Prior ALYSON 2+ normal Continue with tamsulosin, finasteride and sildenafil as needed Finasteride back to Monday, Monday, Monday Trial tadalafil 40 mg on demand Lower Urinary Tract Symptoms: Recently - finasteride and tamsulosin Current visit is for further evaluation of, lower urinary tract symptoms, predominate obstructive symptoms. Current treatment includes medication, finasteride. Prostate Symptom Score 12/30 Mild (0-8), Bother 3. Symptoms include 12/30 , incomplete emptying, urgency, nocturia (>2), and are progressing 06/30 , incomplete emptying, and are improving. Prior Prostate Score mild. PSA 10/30 4.7 F 20%, 05/31 2.3, 05/01 PSA 1.3, 01/01 PSA 1.8, 04/05 1.7, 05/05 5.4, 01/05 1.8, 07/06 1.8, 01/06 1.7, 08/07 2.3, 02/06 2.1 Prostate volume 30-50gm. Testing at next visit will include Improved urination. Continuing current medications Erectile dysfunction Good response to high-dose sildenafil Prescription provided May take up to 200 mg as needed [facility] Medical History Costochondritis Erectile dysfunction due to arterial insufficiency Elevated PSA Weak urinary stream Nocturia Hesitancy of micturition Benign prostatic hyperplasia with lower urinary tract symptoms Surgical History History of surgery Review of Systems Const All systems reviewed & are unremarkable except as noted in HPI and below Reports no additional complaints Resp Reports no additional complaints GI Reports no additional complaints Reports as per HPI Musc Reports no additional complaints Physical Exam Telemedicine evaluation Appropriate responses Regular breathing rate and rhythm HEENT Head: Yes normal to inspection Ears: hearing grossly normal bilaterally Eyes General: appearance normal, both eyes and all related structures Neck Neck: Yes normal visual inspection Chest Chest palpation & inspection: normal inspection of the chest Resp Effort & Inspection: normal respiratory effort and able to speak in complete sentences Telehealth Telehealth Telehealth Platform: [employer] Location of provider rendering services: practice address Location of patient: address on file Patient Identification confirmed using: Name, : Yes Telehealth method: video Patient verbally consented to treatment: Yes Patient verbally consented to billing insurance company: Yes Patient informed of any privacy concerns related to visit: Yes Minutes spent on Phone/Video with Pt.: 15 Assessment & Plan Assessment & Plan (1) Benign prostatic hyperplasia with lower urinary tract symptoms: Code(s): N40.1 - Benign prostatic hyperplasia with lower urinary tract symptoms Category: Medical (2) Nocturia: Code(s): R35.1 - Nocturia Category: Medical (3) Erectile dysfunction due to arterial insufficiency: Code(s): N52.01 - Erectile dysfunction due to arterial insufficiency Category: Medical Plan Trial high-dose tadalafil Orders: Orders Prostate Specific Antigen 12 Months R39.12 - Poor urinary stream Medications: Changed From tadalafil 5 mg PO DAILY 90 days 90 tabs 1RF BPH N40.1 - Benign prostatic hyperplasia with lower urinary tract symptoms To tadalafil 40 mg (2 x 20 mg) PO ONCE 30 tabs 1RF BPH 30 days N40.1 - Benign prostatic hyperplasia with lower urinary tract symptoms Refilled tamsulosin 0.4 mg PO BEDTIME 90 caps 3RF 90 days R35.1 - Nocturia finasteride 5 mg PO DAILY 90 tabs 3RF 90 days Patient Instructions: This note is constructed using voice recognition software. While every effort has been made to ensure accuracy jewel hole driller errors may have been included. Imaging studies, laboratory and physical exam results were discussed and reviewed in detail. No major barriers to patient understanding were identified. An opportunity to ask questions regarding the treatment plan was provided. All questions were answered. The patient expressed understanding and agreement with the above treatment plan. The patient is aware they should contact our office by phone for worsening of their current condition or the appearance of new urologic symptoms. Compliance is encouraged with any medications and followup testing that is ordered. It is a privilege to participate in the urologic care of your patient. If you have any questions or concerns regarding treatment for the above conditions, or other urologic issues, please do not hesitate to contact me. The office telephone contact is [phone]. Sincerely, Dr Alex Ga MD, [facility] - Urology Compassionate Specialist Care for the Genitourinary System Coding Level of Care Code Tele Est Pt Level 3 (91834) Add On Problem Visit Only Diagnoses Benign prostatic hyperplasia with lower urinary tract symptoms N40.1 Nocturia R35.1 Erectile dysfunction due to arterial insufficiency N52.01
--- OUTSIDE RECORDS SUMMARY | 2025-02-04 09:36 | XMS_ITS | Data Portability ---
Author Organization [place] - [facility], Allergy Address [address] [address] Care Team Providers Care Supervisor Speech Name Role Phone MERT LOZADA Primary Care Provider Assessment Encounter Date Assessment Date Assessment LastModified by Organization Details LastModified Time 09/08/2023 09/08/2023 Patient with prior history of septoplasty presents with abnormal MRI during workup for significant headache. Images reviewed personally. He was found to have extensive sinusitis. He noted a fluttering in his nose and mucous. He notes symptoms have been improved with fluticasone nasal spray but there has been some increased congestion and a headache recently. 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 I have suggested a 5-day course of prednisone to shrink the polyps, continuing the fluticasone nasal spray and arranging for allergy skin testing. [email or web address] Not available 09/08/2023 10:10:28 Plan of Treatment Reminders Order Date Submit Date Provider Last Modified By Organization Details Last Modified Time Details Appointments None recorded. Lab None recorded. Referral None recorded. Procedures allergy testing, skin prick (PROC) 2023 024 [email or web address] 2 Not available 13:36:31 intradermal allergy skin testing (PROC) 2023 024 [email or web address] 2 Not available 13:36:32 pulmonary function test procedure (PROC) 2023 024 [email or web address] 2 Not available 4 13:36:32 pulse oximetry (PROC) 2023 024 [email or web address] 2 Not available 4 13:36:32 Surgeries None recorded. Imaging None recorded. Medication Orders prednisone 20 mg tablet 2023 024 [id number], [address] [facility], [place], [address], 4 10:10:10 Patient TargetsNo targets recorded. Patient InstructionsNo instructions recorded. Reason for Referral None Reported. Results Created Date Observation Date Name Description Value Unit Range Abnormal Flag Note LastModifiedBy Organization Detail LastModifiedTime 10/03/19 24 03/08/2023 imagi ng/di agnos tic resul t No observ ation record ed. [email or web address] Not Available 16:53:30 Result Notes None recorded. Problems Name Problem SNOMED Code Status Onset Date Resolution Date Notes Provider Name and Address Organization Details Recorded Time Sinus headache 2448544 Active 024 JANELL DOSHI MD [address] [place] [address], [place], [phone], [facility] 4 10:07:54 Polyp of nasal cavity 994326335 Active 024 JANELL DOSHI MD [address] [place] [address], [place], [phone], [facility] 4 10:08:03 Allergic rhinitis 78040068 Active 024 JANELL DOSHI MD [address] [place] [address], [place], [phone], [facility] 4 10:08:20 Chronic sinusitis 69301719 Active 024 JANELL DOSHI MD [address] [place] [address], [place], [phone], [facility] 4 10:08:40 Problem Notes None recorded. Procedures Surgical History Date Name Laterality Status Provider Name and Address Organization Details Recorded Time 4 JMSNasal/Sinus Endoscopy completed JANELL HORTA MD [address] [place] [address], [phone], [facility] 09/08/2023 10:07:48 Imaging Results None recorded. Procedure Notes None recorded. Medical Equipment None Reported. Allergies Allergen ID Allergen Name Allergen Category Reaction Reaction Severity Criticality Documentation Date Start Date Code Code System Note Provider Name and Address Organization Details Recorded Time 529148 naproxen medicatio n Not available Not available Not available 09/08/2023 7258 RxNorm Gabino jc [place] [facility] 09:58:30 Medications Name Sig Start Date Stop Date Status Note LastModified by Organization Details LastModified Time prednisone 20 mg tablet TAKE TWO TABLETS BY MOUTH EVERY DAY FOR 5 DAYS active Not Available Not Available No t Available tamsulosin 0.4 mg capsule active Not Available Not Available Not Available fluticasone propionate 50 mcg/actuati on nasal spray,suspe nsion INSTILL 2 SPRAYS INTO EACH NOSTRIL DAILY active Not Available Not Available No t Available finasteride 5 mg tablet active Not Available Not Available Not Available moxifloxaci n 0.5 % eye drops INSTILL ONE DROP INTO RIGHT EYE FOUR TIMES A DAY DIRECTED TO BEGIN 3 DAYS BEFORE SURGERY active Not Available Not Available No t Available diflupredna te 0.05 % eye drops INSTILL 1 DROP INTO RIGHT EYE 4 TIMES A DAY DIRECTED; DO NOT START UNTIL DIRECTED TO AFTER SURGERY 09/07 completed Not Available Not Available Not Available Vitals Date Recorded Systolic And Diastolic Provider Name and Address Organization Details Last Updated DateTime 09/08/2023 132/80 mm[Hg] JANELL HORTA MD [address] [place] [address], [phone], [facility] 09/08/2023 10:10:56 Date Recorded Body height Body mass index (BMI) Body weight Provider Name and Address Organization Details Last Updated DateTime 09/08/2023 182.88 cm 19 kg/m2 04361.93 g Gabino Freedman [facility] 09/08/2023 09:58:20 Social History None recorded. Functional Status None recorded. Mental Status None recorded. Family History Nothing Reported. Medical History Condition Response Arthritis Y Past Encounters Encounter ID Performer Location Encounter Start Date Encounter Closed Date Diagnosis/Indication Diagnosis SNOMED-CT Code Diagnosis ICD10 Code Diagnosis IMO Codes Diagnosis Note [id number] JANELL PALOMARES MD [facility] [address] [place] [address] 09/08/2023 08:54:58 09/12/2023 13:23:55 Sinus headache 6657207 R51.9 Polyp of nasal cavity 73 9741962 J33.0 Allergic rhinitis 498140 04 J30.9 Chronic sinusitis 986214 00 J32.9 Health Concerns Section Related Observation LastModified by Organization Detai ls LastModified Time None Recorded Concern Status LastModified by Organization Details LastModified Time None Recorded Advance Directives Directive None Recorded Payers Insurance Date Sequence Insurance Name Policy Number Policy Don Covered Member ID Don Member ID Guarantor Name 09/08/2023 1 [facility] - [facility] ([id number]) [id number] Narciso Watson [id number] Narciso Watson Notes Date Note Type Note Provider Name and Address Organization Details Recorded Time 09/08/2023 text/html Patient with significant headache in the fall. Work up included MRI for migraine. Found to have extensive sinus disease. Treated with nasal steroids and saline with improvement. Hx of cervical arthritis and prior septoplasty JANELL HORTA MD [address] [address], [place], [address], [facility] 09/08/2023 10:11:41
--- OUTSIDE RECORDS SUMMARY | 2025-02-04 09:36 | XMS_ITS | Clinical Summary ---
Author Organization [facility] Address [address] [place] [address] Phone Care Team Providers Care Assistant Terminal Manager Name Role Phone Darryl Fry MD Primary [...] Elevated LDL cholesterol level 03/28/2022 Other emphysema 03/28/2022 Underweight 03/28/2022 Direct inguinal hernia 01/09/2019 Elevated PSA 05/02/2016 Impaired fasting blood sugar 11/02/2015 Periapical abscess without sinus 04/21/2005 Mitral valve disorder 04/21/2005 Overview (02/05/2024): ECHO in 2008 and 2013 Resolved Problems Problem Noted Date Diagnosed Date Resolved Date Chest pain 04/21/2005 04/18/2024 Encounters Date Type Department Care Team Description 01/22/2025 12:50 PM EST Lab Draw Station [address] [id number] Urinary retention due to benign prostatic hyperplasia (Primary Dx) 12/11/2024 9:14 AM EDT - 12/11/2024 11:59 PM EDT Hospital Encounter [facility] CT Scan [address] [place] [id number] Nicotine dependence, cigarettes, uncomplicated Discharge Disposition: Home or Self Care 11/22/2024 Telephone Lung Screening Program - [place] [address] [facility] [address] [place] [id number] Osiris Terry MD from Last 3 Months Immunizations Immunization Administration Dates Next Due Influenza Quadravalent, MDCK , 0.5ml, preservative free (Flucelvax) 6mo and older 03/28/2022,01/09/2019,12/14/2017 Influenza Quadravalent, MDCK , 0.5ml, with preservative (Flucelvax) 6mo and older 11/02/2016 Influenza trivalent, 0.5mL ( Fluad) 65yo and older 04/05/2024 Influenza trivalent, 0.5mL ( Fluzone High-dose) 65yo and older 01/20/2021,01/14/2020,11/03/2014 Influenza trivalent, with pr eservative (Fluzone; Afluria) 6mo and older 11/02/2015 [employer] SARS-CoV-2 COVID -19, vector-nr, [id number], preservative free [...] repeat in 5 yrs COLONOSCOPY 06/19/15 PROCEDURE: [place] COLONOSCOPY STOMA W/RMVL DALILA POLYP/OTH LES SNARE; [...] 2 Cataracts Father heart murmur, a sbestosis, [place] Heart attack Mother No Known Problems Sister Relation Name Status Comments Brother 1 Brother 2 Alive Father (Age 89) Mother (Age 77) Sister Alive Social History Tobacco Use Types Packs/Day Years Used Date Smoking Tobacco: Former Cigarettes 1 Q uit: 08/14/2019 Smokeless Tobacco: Never Tobacco [...] care for your loved ones. For example, child nutrition manager or elderly care for an older adult? [...] Date Recorded What is your living situation? Unrecognized valu e 04/05/2024 Sex and Gender Information Value Date Recorded Sex Assigned at Not on file Legal Sex Male 7:16 AM EST Gender Identity Not on file Sexual Orientation Not on file Occupation Industry Job Start Date Job End Date retired Not on file Not on file Not on file Last Filed Vital Signs Vital Sign Reading [...] 11:30 AM EDT Office Visit Adult Medicine [facility] [address], [place] [phone] Darryl Fry MD [address] [place], [place] Health Maintenance Due Date Last Done Comments RSV Immunization Adult Patients (1 - Risk 50-74 years 1-dose series) 01/18/2004 Zoster Vaccines (2 of 3) 12/29/2014 11/03/2014 Medicare Annual Wellness Visit 01/22/2022 COVID-19 Vaccine (3 - season) 2024 05/27/2020, 04/28/2020 Influenza Vaccine (#1) 2024 , 03/28/2022, 01/20/2021, Additional history exists Falls Risk Assessment 04/05/2025 04/05/2024 Social Influencers of Health Screening 04/05/2025 04/05/2024 Cholesterol Screening (Lipid Panel) 07/05/2029 07/05/2024, 06/29/2023, 06/29/2023 DTaP,Tdap,and Td Vaccines (5 - Td or Tdap) 03/16/2030 03/16/2020, 12/21/2009, 02/01/2008, Additional history exists Colorectal Cancer Screening: Colonoscopy 10/22/2033 10/23/2023 Hepatitis C Screening Completed 01/26/2006 Abdominal Aortic Aneurysm (AAA) Screen Completed 04/09/2020 Pneumococcal Vaccine: 50+ Years Completed 03/28/2022, 03/16/2020 Depression Screening Completed 04/05/2024 Lung Cancer Screening (Low Dose CT) Discontinued 12/11/2024, 12/11/2023, 12/12/2022, Additional history exists HIB Vaccines Aged Out [...] Diagnosis Comments PROSTATE SPECIFIC ANTIGEN DIAGNOSTIC Routine 01/22/2025 12:58 PM EST Urinary retention due to benign prostatic hyperplasia CT LUNG SCREENING Routine 12/11/2024 9:3 1 AM EDT Nicotine dependence, cigarettes, uncomplicated LIPID PANEL WITH REFLEX TO DIRECT LDL Routine 07/05/2024 9:47 AM EDT Hypercholesterolemia COLONOSCOPY Routine 10/23/2023 ABDOMINAL AORTIC ANEURYSM SCRREN Routine 04/09/2020 HEPATITIS C SCREENING Routine 01/26/2006 from Last 3 Months or Most Recently Relevant to Health Maintenance Results * Prostate specific antigen diagnostic (01/22/2025 12:58 PM EST) PSA 2.13 0.00 - 4.00 ng/mL 01/22/2025 5:09 PM EST [facility] Blood Venous blood specimen / Unknown Venipuncture / Unknown 01/22/2025 12:58 PM EST 01/22/2025 12:58 PM EST Narrative [facility] - 01/22/2025 5:09 PM EST The Siemens [employer] IM Chemiluminescent Immunoassay is used. Results obtained with different assay methods or kits cannot be used interchangeably. Results cannot be interpreted as absolute evidence of the presence or absence of malignant disease. us Alex Ga MD LAB BLOOD ORDERABLES Final Re sult [facility] [address] [place] [address], * CT Lung Screening (12/11/2024 9:31 AM EDT) Anatomical Region Laterality Modality Chest Computed Tomogra phy 12/16/2024 10:0 9 AM EST Impressions 12/16/2024 10:22 AM EST No suspicious mass or nodule. Severe underlying chronic lung disease. No suspicious interval change. LUNG RADS: Lung-RADS 2: BENIGN S Modifier (Significant or Potentially Significant Findings): None present No suspicious nonpulmonary findings. RECOMMENDATIONS: 12 month screening low dose CT -------- FINAL REPORT -------- Dictated By: William Arteaga Dictated Date: 12/16/2024 10:09 ET Assigned Physician: William Arteaga Reviewed and Electronically Signed By: William Arteaga Signed Date: 12/16/2024 10:22 ET Workstation ID: [id number] Transcribed By: Self Edit Transcribed Date: 12/16/2024 10:09 ET Narrative 12/16/2024 10:22 AM EST EXAMINATION: CT CHEST WITHOUT CONTRAST LUNG CANCER SCREENING, LOW DOSE CLINICAL INFORMATION: Lung cancer screening. Current smoker. COMPARISON: Portions of previous 12/10/23 TECHNIQUE: Multidetector CT. Examination of the chest. Examination of the chest without IV contrast. Reformatting in the coronal and sagittal planes. Device: Elixserve VCT DLP: 130 mGy-cm CTDI: 3.22 Dose optimization was performed including the use of low-dose iterative reconstruction technique with automatic exposure control based on patient size. Type of contrast: None Volume of IV contrast: None Volume of contrast discarded: 0 mL FINDINGS: LUNG: No abnormality of the trachea or mainstem bronchi. LUNG NODULES: There are no suspicious nodules or masses. Stable typically benign pleural associated nodule in the region of the central portion of the minor fissure (3/139). Unchanged volume loss associated with the most anterior inferior aspect of the right major fissure. There is some unchanged irregular opacity associated with the right lower lobe adjacent to the dome of the right hemidiaphragm with linear components extending to the pleural reflection posterolaterally. OTHER PULMONARY: There is severe emphysema with a paraseptal component. There is some moderate and small airway thickening. There are some interstitial lung abnormalities including reticular opacities and some fibrotic changes adjacent to the diaphragm on each side. MEDIASTINUM: There are no enlarged mediastinal or hilar lymph nodes. No suspicious abnormalities of the esophagus. CARDIAC: The heart is not enlarged. No pericardial fluid or thickening There are marked coronary calcifications. VASCULAR: There is no thoracic aortic aneurysm. The main pulmonary artery is normal caliber PLEURA: There is no pleural fluid or pneumothorax. There are mild calcified pleural plaques. There are some noncalcified areas of pleural thickening. AXILLA/CHEST WALL: There are no enlarged axillary lymph nodes. No chest wall mass demonstrated. VISUALIZED UPPER ABDOMEN: No suspicious abnormality on limited assessment of the visualized upper abdomen. There is cholelithiasis. MUSCULOSKELETAL: No suspicious focal bony lesion demonstrated. Procedure Note William Arteaga MD - 12/16/2024 EXAMINATION: CT CHEST WITHOUT CONTRAST LUNG CANCER SCREENING, LOW DOSE CLINICAL INFORMATION: Lung cancer screening. Current smoker. COMPARISON: Portions of previous 12/10/23 TECHNIQUE: Multidetector CT. Examination of the chest. Examination of the chest without IV contrast. Reformatting in the coronal and sagittal planes. Device: Elixserve VCT DLP: 130 mGy-cm CTDI: 3.22 Dose optimization was performed including the use of low-dose iterativereconstruction technique with automatic exposure control based on patientsize. Type of contrast: None Volume of IV contrast: None Volume of contrast discarded: 0 mL FINDINGS: LUNG: No abnormality of the trachea or mainstem bronchi. LUNG NODULES: There are no suspicious nodules or masses. Stable typically benign pleural associated nodule in the region of thecentral portion of the minor fissure (3/139). Unchanged volume loss associated with the most anterior inferior aspect ofthe right major fissure. There is some unchanged irregular opacity associated with the right lowerlobe adjacent to the dome of the right hemidiaphragm with linearcomponents extending to the pleural reflection posterolaterally. OTHER PULMONARY: There is severe emphysema with a paraseptal component.There is some moderate and small airway thickening. There are some interstitial lung abnormalities including reticularopacities and some fibrotic changes adjacent to the diaphragm on eachside. MEDIASTINUM: There are no enlarged mediastinal or hilar lymph nodes. Nosuspicious abnormalities of the esophagus. CARDIAC: The heart is not enlarged. No pericardial fluid or thickening There are marked coronary calcifications. VASCULAR: There is no thoracic aortic aneurysm. The main pulmonary arteryis normal caliber PLEURA: There is no pleural fluid or pneumothorax. There are mildcalcified pleural plaques. There are some noncalcified areas of pleuralthickening. AXILLA/CHEST WALL: There are no enlarged axillary lymph nodes. No chestwall mass demonstrated. VISUALIZED UPPER ABDOMEN: No suspicious abnormality on limited assessmentof the visualized upper abdomen. There is cholelithiasis. MUSCULOSKELETAL: No suspicious focal bony lesion demonstrated. IMPRESSION: No suspicious mass or nodule. Severe underlying chronic lung disease. No suspicious interval change. LUNG RADS: Lung-RADS 2: BENIGN S Modifier (Significant or Potentially Significant Findings): Nonepresent No suspicious nonpulmonary findings. RECOMMENDATIONS: 12 month screening low dose [address] -------- FINAL REPORT -------- Dictated By: William Arteaga Dictated Date: 12/16/2024 10:09 ET Assigned Physician: William Arteaga Reviewed and Electronically Signed By: William Arteaga Signed Date: 12/16/2024 10:22 ET Workstation ID: [id number] Transcribed By: Self Edit Transcribed Date: 12/16/2024 10:09 ET us Osiris Terry MD IM CT PROCEDURES Final Result * Lipid panel with reflex to direct LDL (07/05/2024 9:47 AM EDT) Cholesterol 176 0 - 200 mg/dL LAB CHEMISTRY METHOD 07/05/2024 3:31 PM EDT [facility] Triglycerides 105 0 - 150 mg/dL LAB CHEMISTRY METHOD 07/05/2024 3:31 PM EDT [facility] HDL 61 >=40 mg/dL LAB CHEMISTRY METHOD 07/05/2024 3:31 PM EDT [facility] LDL Calculated 94 0 - 100 mg/dL LAB CHEMISTRY METHOD 07/05/2024 3:31 PM [facility] VLDL Cholesterol Javier 21 mg/dL LAB CHEMISTRY METHOD 07/05/2024 3:31 PM T [facility] Non HDL Chol. (LDL+VLDL) 115 <145 mg/dL LAB CHEMISTRY METHOD 07/05/2024 3:31 PM T [facility] Chol/HDL Ratio 2.9 0.0 - 4.4 LAB CHEMISTRY METHOD 07/05/2024 3:31 PM [facility] Blood Venous blood specimen / Unknown Venipuncture / Unknown 07/05/2024 9:47 AM EDT 07/05/2024 9:47 AM EDT us Lisandra Pickard PA LAB BLOOD ORDERABLES Final Resul t [facility] [address] [place] [address], [place] [phone] * Colonoscopy (10/23/2023) Pathologist [facility] Colonoscopy No Interpretation , Abstracted Anatomical Region Laterality Modality Other Historical Provider HEALTH MAINTENANCE Final Result * Abdominal Aortic Aneurysm Screen (04/09/2020) Pathologist [facility] Abdominal Aortic Aneurysm (AAA) Screening Abstracted Anatomical Region Laterality Modality Other Historical Provider HEALTH MAINTENANCE Final Result * Hepatitis C Screening (01/26/2006) Pathologist [facility] Hepatitis C Screening Abstracted Historical Provider HEALTH MAINTENANCE Final Result from Last 3 Months or Most Recently Relevant to Health Maintenance Insurance [facility] MEDIC[facility] Care Teams Assistant Terminal Manager Relationship Specialty Start Date End Date Darryl Fry MD [address] [place] [phone] PCP - General 03/01/22
== END 2025-02-04 10:13 | disposition home or self-care (01) ==
LOC: HO.HUSH 09:02
PROVIDERS: PCP Internal Medicine; Visit Provider Urology
DX: N40.1 Benign prostatic hyperplasia with lower urinary tract symptoms (principal); R35.1 Nocturia; N52.01 Erectile dysfunction due to arterial insufficiency
CPT/HCPCS: 99213